=== PATIENT | female | born 2000 ===

== ENCOUNTER 2022-01-29 14:01 | Inpatient (IN) | payer OTHER ==
[~2022-01-29] VITALS: Ht 167.6 cm; Wt 3.2 kg
[2022-01-29] MEDS ORDERED: PRENATABS RX T1 EACH PO (14:50)
[2022-02-11] MEDS ORDERED: Tylenol #3 PO (12:07)
[2022-02-11] MEDS ORDERED: NAPR500T14 PO (12:07)
== END 2022-02-11 12:38 | disposition home or self-care (01) | DRG 788 ==
LOC: OB/GYN 14:01 → LDR 14:01 → OB/GYN 01-30 10:50
PROVIDERS: ADMIT Obstetrics & Gynecology; ATTEND Obstetrics & Gynecology
PROC: 4A1HXCZ Monitoring of Products of Conception, Cardiac Rate, External Approach (ICD-10-PCS; 2022-01-29)
PROC: 10D00Z1 Extraction of Products of Conception, Low, Open Approach (ICD-10-PCS; principal; 2022-02-08 20:15)
DX: O13.4 Gestational [pregnancy-induced] hypertension without significant proteinuria, complicating childbirth (principal); Z3A.36 36 weeks gestation of pregnancy; Z37.0 Single live birth; Z20.822 Contact with and (suspected) exposure to COVID-19